=== PATIENT | male | born 1950 | race Caucasian/White ===

== ENCOUNTER → 2017-03-03 | Outpatient (CLI) | payer OTHER ==
--- NOTE | 2017-03-03 10:59 | Diagnostic Imaging Report ---
PROCEDURE:TESTICULAR ULTRASOUND COMPARISON:None. INDICATIONS:SPERMATOCELE TECHNIQUE: Lara-scale and color doppler images of the testicles and scrotal contents were obtained. Duplex imaging with spectral waveform analysis was performed of the testicular arteries and veins. FINDINGS: RIGHT SCROTUM: Testicle: 4.0 x 2.7 x 3.5 cm. Uniform parenchymal echotexture. No focal mass. Arterial and venous waveforms are identified by spectral waveform analysis. Epididymal head: 1.9 x 0.9 x 0.9 cm. Hydrocele: None Varicocele: None LEFT SCROTUM: Testicle: 4.4 x 2.9 x 3.37 m. Uniform parenchymal echotexture. No focal mass. Arterial and venous waveforms are identified by spectral waveform analysis. Epididymal head: 1.7 x 1 x 1.8 cm. 0.7 x 0.5 x 0.7 cm anechoic round structure compatible with a cyst or spermatocele. Hydrocele: None Varicocele: None CONCLUSION: 0.7 cm left epididymal head cyst versus spermatocele. Unremarkable sonographic appearance of the testes. Dictated by: Ankur Estrada M.D. on 03/03/2017 at 11:07 Electronically approved by: Ankur Estrada M.D. on 03/03/2017 at 11:07
--- NOTE | 2017-03-03 10:59 | Diagnostic Imaging Report ---
PROCEDURE:TESTICULAR DOPPLER ULTRASOUND COMPARISON:None. INDICATIONS:SPERMATOCELE TECHNIQUE: Lara-scale and color doppler images of the testicles and scrotal contents were obtained. Duplex imaging with spectral waveform analysis was performed of the testicular arteries and veins. FINDINGS: See conclusion CONCLUSION: Referred to "[facility] TESTICULAR" from 03/03/2017 for full dictated report. Dictated by: Ankur Estrada M.D. on 03/03/2017 at 11:08 Electronically approved by: Ankur Estrada M.D. on 03/03/2017 at 11:08
== END ==
LOC: US 09:28
PROVIDERS: ATTEND Urology
DX: N43.40 Spermatocele of epididymis, unspecified (principal)
CPT/HCPCS: 76870; 93976

== ENCOUNTER → 2018-07-05 | Outpatient (CLI) | payer MEDICARE ==
--- NOTE | 2018-07-05 12:25 | Diagnostic Imaging Report ---
EXAMINATION: Renal ultrasound. CLINICAL HISTORY :Incomplete bladder emptying COMPARISON: <None available.> TECHNIQUE: Grayscale and color Doppler evaluation of the kidneys and bladder was performed in transverse and longitudinal planes. DISCUSSION: RIGHT KIDNEY: 11.4 cm in length with normal renal cortical echogenicity. Mild hydronephrosis. No solid or cystic mass lesion. LEFT KIDNEY: The left kidney measures 10.6 cm in length and shows normal renal cortical echogenicity. Mild hydronephrosis. Exophytic simple cyst projecting from the upper pole measuring 2 x 1.5 x 1.8 cm. BLADDER: Distended. The prostate is enlarged measuring 4.6 x 3.4 x 4.1 cm, estimated volume 34 cc. Questionable nodule within the prostate with mass effect on the adjacent bladder measuring approximately 2 x 2.2 x 2.8 cm. Significant post void residual (700 cc). IMPRESSION: Mild prostatomegaly with significant post void residual volume of urine within the bladder (approximately 700 cc). Questionable associated exophytic prostatic nodule may be further evaluated by pelvic MRI. Mild bilateral hydronephrosis, presumably as a consequence of bladder outlet obstruction. Signed by: Dr. Ankur Estrada M.D. on 07/05/2018 12:21 PM
== END ==
LOC: US 10:23
PROVIDERS: ATTEND Urology
DX: R39.14 Feeling of incomplete bladder emptying (principal)
CPT/HCPCS: 76770; 76857

== ENCOUNTER 2021-10-06 15:00 | Inpatient (IN) | payer MEDICARE ==
[~2021-10-06] VITALS: Ht 175.3 cm; Wt 90.7 kg
[2021-10-06 15:57] LABS: CLARITY,URINE HAZY (CLEAR); COLOR,URINE AMBER (YELLOW); LEUKOCYTE ESTERASE ,URINE LARGE (NEGATIVE); NITRITE,URINE POSITIVE (NEGATIVE)
[2021-10-06 15:58] LABS: KETONES,URINE 1+ (NEGATIVE); PROTEIN,URINE DIPSTICK >=300 (NEGATIVE)
[2021-10-06 16:01] LABS: BACTERIA,URINE MANY /HPF; RBC,URINE >50 /HPF (0-5); WBC,URINE (MAN) >50 /HPF (0-5)
[2021-10-06 16:02] LABS: AMORPHOUS SEDIMENT,URINE FEW (FEW); EPITHELIAL CELLS,URINE FEW /LPF; MUCUS,URINE MODERATE (RARE)
[2021-10-06] MEDS ORDERED: MEROPENEM 1 GM in SODIUM CHLORIDE 0.9% 100 ML IV ONE (16:15)
[2021-10-06] MEDS ORDERED: SODIUM CHLORIDE 0.9% 1000ML 2,720 ML IV ONE (16:15)
[2021-10-06] MEDS ORDERED: Vancomycin IV 1 GM in SODIUM CHLORIDE 0.9% 250ML 250 ML IV ONE (16:30)
[2021-10-06 16:32] LABS: BASOPHILS % 0.2 % (0.0-1.0); EOSINOPHILS # (AUTO) 0.1 (0.0-0.4); EOSINOPHILS % 0.2 % (0.0-6.0); HEMATOCRIT 37.9 % (38.2-49.6); HEMOGLOBIN 12.4 g/dL (14.0-18.0); LYMPHOCYTES # (AUTO) 1.7 (1.0-3.2); LYMPHOCYTES % 8.3 % (18.0-39.1); MEAN CORPUSCULAR HGB CONC 32.7 g/dL (31-35); MEAN CORPUSCULAR VOLUME 94.8 fL (81-99); MONOCYTES # (AUTO) 2.8 (0.2-0.8); MONOCYTES % 13.5 % (4.4-11.3); NEUTROPHILS # (AUTO) 15.9 (2.1-6.9); NEUTROPHILS % 77.3 % (38.7-80.0); PLATELET COUNT 321 x10e3/uL (140-360)
[2021-10-06 16:42] LABS: INR 1.01; PROTHROMBIN TIME 14.2 seconds (11.9-14.5)
[2021-10-06 16:43] LABS: PARTIAL THROMBOPLASTIN TIME 29.7 seconds (23.8-35.5)
[2021-10-06 16:49] LABS: ALBUMIN 3.3 g/dL (3.5-5.0); ALBUMIN/GLOBULIN RATIO 0.8 (0.8-2.0); ANION GAP 15.3 mmol/L (8-16); CALCIUM 8.9 mg/dL (8.4-10.2); CREATININE, SERUM 0.75 mg/dL (0.72-1.25); POTASSIUM 4.3 mmol/L (3.5-5.1)
[2021-10-06 17:01] LABS: EOSINOPHILS % (MANUAL) 1 % (0-7); LYMPHOCYTES % (MANUAL) 15 % (19-48); MONOCYTES % (MANUAL) 18 % (3.4-9.0); NEUTROPHILS % (MANUAL) 66 % (40-74); PLATELET ESTIMATE ADEQUATE; PLATELET MORPHOLOGY COMMENT NORMAL; RBC MORPHOLOGY COMMENT NORMAL
[2021-10-06] MEDS ORDERED: ONDANSETRON HCL INJ 2MG/ML 2ML 2 MG/ML VIAL IV PRN (18:45)
[2021-10-06] MEDS ORDERED: BRILINTA90 MG (20:42)
[2021-10-06] MEDS ORDERED: DIOVAN160 MG PO (20:42)
[2021-10-06] MEDS ORDERED: RANEXA1000 MG PO (20:42)
[2021-10-06] MEDS ORDERED: METOPROLOL SUCC25 MG PO (20:42)
[2021-10-06] MEDS ORDERED: ASPIRIN81 MG PO (20:42)
[2021-10-06] MEDS ORDERED: SIMVASTATIN20 MG PO (20:42)
[2021-10-06 21:43] VITALS: BP 163/66
[2021-10-06] MEDS ORDERED: ACETAMINOPHEN 325 MG TAB PO PRN (22:00)
[2021-10-06] MEDS ORDERED: MAGNESIUM HYDROXIDE 30 ML UDC PO PRN (22:00)
[2021-10-06] MEDS ORDERED: MELATONIN 3 MG TAB PO PRN (22:00)
[2021-10-06] MEDS: SIMVASTATIN 20 MG TAB PO SCH (22:43)
[2021-10-06] MEDS: SODIUM CHLORIDE 0.9% 1000ML 1,000 ML IV SCH (22:43)
[2021-10-06] MEDS: METOPROLOL SUCCINATE 25 MG TAB XL PO SCH (22:44)
[2021-10-06] MEDS: RANOLAZINE 500 MG TABSR PO SCH (22:45)
[2021-10-06] MEDS: VALSARTAN 160 MG TAB PO SCH (22:45)
[2021-10-06] MEDS: ASPIRIN 81 MG CHEW TAB PO SCH (22:45)
[2021-10-06] MEDS: TICAGRELOR 90 MG TABLET PO SCH (22:46)
[2021-10-07] VITALS (10 sets, daily range): BP systolic 104–163; BP diastolic 52–66
[2021-10-07] MEDS: MEROPENEM 1 GM in SODIUM CHLORIDE 0.9% 100 ML IV SCH ×3 (00:29→16:32)
[2021-10-07] MEDS: SODIUM CHLORIDE 0.9% 1000ML 1,000 ML IV SCH ×3 (04:45→21:03)
[2021-10-07 05:47] LABS: BASOPHILS % 0.2 % (0.0-1.0); EOSINOPHILS # (AUTO) 0.1 (0.0-0.4); EOSINOPHILS % 0.5 % (0.0-6.0); HEMATOCRIT 35.6 % (38.2-49.6); HEMOGLOBIN 11.6 g/dL (14.0-18.0); LYMPHOCYTES # (AUTO) 2.2 (1.0-3.2); LYMPHOCYTES % 13.1 % (18.0-39.1); MEAN CORPUSCULAR HGB CONC 32.6 g/dL (31-35); MEAN CORPUSCULAR VOLUME 95.2 fL (81-99); MONOCYTES # (AUTO) 1.8 (0.2-0.8); MONOCYTES % 10.8 % (4.4-11.3); NEUTROPHILS # (AUTO) 12.6 (2.1-6.9); NEUTROPHILS % 74.7 % (38.7-80.0); PLATELET COUNT 292 x10e3/uL (140-360); RED BLOOD COUNT 3.74 x10e6/uL (4.3-5.7)
[2021-10-07] MEDS: HYDROCODONE/APAP 10MG-325MG TAB PO PRN ×2 (05:54→20:57)
[2021-10-07 05:59] LABS: ALBUMIN 2.9 g/dL (3.5-5.0); ALBUMIN/GLOBULIN RATIO 0.8 (0.8-2.0); CALCIUM 8.2 mg/dL (8.4-10.2); CREATININE, SERUM 0.69 mg/dL (0.72-1.25)
[2021-10-07] MEDS: RANOLAZINE 500 MG TABSR PO SCH ×2 (08:56→17:00)
[2021-10-07] MEDS: METOPROLOL SUCCINATE 25 MG TAB XL PO SCH ×2 (08:57→17:00)
[2021-10-07] MEDS: TICAGRELOR 90 MG TABLET PO SCH ×2 (08:57→17:35)
[2021-10-07] MEDS ORDERED: RANOLAZINE 500 MG TABSR PO SCH (09:00)
[2021-10-07] MEDS ORDERED: TICAGRELOR 90 MG TABLET PO SCH (09:00)
[2021-10-07] MEDS ORDERED: METOPROLOL SUCCINATE 25 MG TAB XL PO SCH (09:00)
[2021-10-07] MEDS ORDERED: ASPIRIN 81 MG CHEW TAB PO SCH ×2 (09:00)
[2021-10-07] MEDS ORDERED: VALSARTAN 160 MG TAB PO SCH (09:00)
[2021-10-07] MEDS: ASPIRIN 81 MG CHEW TAB PO SCH (20:50)
[2021-10-07] MEDS: VALSARTAN 160 MG TAB PO SCH (20:50)
[2021-10-07] MEDS: SIMVASTATIN 20 MG TAB PO SCH (20:50)
[2021-10-08] VITALS (8 sets, daily range): BP systolic 112–141; BP diastolic 55–69
[2021-10-08] MEDS: MEROPENEM 1 GM in SODIUM CHLORIDE 0.9% 100 ML IV SCH ×2 (00:24→08:16)
[2021-10-08 05:45] LABS: BASOPHILS # (AUTO) 0.1 (0.0-0.1); BASOPHILS % 0.4 % (0.0-1.0); EOSINOPHILS # (AUTO) 0.4 (0.0-0.4); EOSINOPHILS % 2.9 % (0.0-6.0); HEMATOCRIT 33.4 % (38.2-49.6); HEMOGLOBIN 11.1 g/dL (14.0-18.0); LYMPHOCYTES # (AUTO) 2.1 (1.0-3.2); MEAN CORPUSCULAR HEMOGLOBIN 30.9 pg (28-32); MEAN CORPUSCULAR HGB CONC 33.2 g/dL (31-35); MONOCYTES # (AUTO) 1.2 (0.2-0.8); MONOCYTES % 10.1 % (4.4-11.3); NEUTROPHILS # (AUTO) 8.3 (2.1-6.9); NEUTROPHILS % 69.1 % (38.7-80.0); PLATELET COUNT 272 x10e3/uL (140-360); RED BLOOD COUNT 3.59 x10e6/uL (4.3-5.7); RED CELL DISTRIBUTION WIDTH 13.1 % (11.7-14.4)
[2021-10-08 06:06] LABS: ANION GAP 12.9 mmol/L (8-16); CREATININE, SERUM 0.67 mg/dL (0.72-1.25); POTASSIUM 3.9 mmol/L (3.5-5.1)
[2021-10-08] MEDS: METOPROLOL SUCCINATE 25 MG TAB XL PO SCH ×3 (08:15→17:34)
[2021-10-08] MEDS: RANOLAZINE 500 MG TABSR PO SCH ×3 (08:15→17:35)
[2021-10-08] MEDS: TICAGRELOR 90 MG TABLET PO SCH ×2 (08:16→17:35)
[2021-10-08] MEDS: SODIUM CHLORIDE 0.9% 1000ML 1,000 ML IV SCH ×2 (08:16→21:54)
[2021-10-08] MEDS ORDERED: ONDANSETRON HCL 4 MG ORAL DISINTEGRATING TAB PO PRN (11:45)
[2021-10-08] MEDS: HYDROCODONE/APAP 10MG-325MG TAB PO PRN (12:06)
[2021-10-08] MEDS: ASPIRIN 81 MG CHEW TAB PO SCH (21:46)
[2021-10-08] MEDS: SIMVASTATIN 20 MG TAB PO SCH (21:46)
[2021-10-08] MEDS: VALSARTAN 160 MG TAB PO SCH (21:46)
[2021-10-09] VITALS: BP 144/59
[2021-10-09 04:00] VITALS: BP 124/51
[2021-10-09 05:35] LABS: BASOPHILS % 0.2 % (0.0-1.0); EOSINOPHILS # (AUTO) 0.4 (0.0-0.4); EOSINOPHILS % 2.6 % (0.0-6.0); HEMATOCRIT 38.6 % (38.2-49.6); HEMOGLOBIN 12.3 g/dL (14.0-18.0); LYMPHOCYTES # (AUTO) 2.5 (1.0-3.2); LYMPHOCYTES % 18.8 % (18.0-39.1); MEAN CORPUSCULAR HEMOGLOBIN 30.6 pg (28-32); MEAN CORPUSCULAR HGB CONC 31.9 g/dL (31-35); MONOCYTES # (AUTO) 1.2 (0.2-0.8); MONOCYTES % 9.1 % (4.4-11.3); NEUTROPHILS # (AUTO) 9.2 (2.1-6.9); NEUTROPHILS % 68.9 % (38.7-80.0); PLATELET COUNT 341 x10e3/uL (140-360); RED BLOOD COUNT 4.02 x10e6/uL (4.3-5.7); RED CELL DISTRIBUTION WIDTH 12.9 % (11.7-14.4)
[2021-10-09] MEDS: HYDROCODONE/APAP 10MG-325MG TAB PO PRN (05:52)
[2021-10-09 05:55] LABS: ANION GAP 16.9 mmol/L (8-16); CALCIUM 8.7 mg/dL (8.4-10.2); CREATININE, SERUM 0.7 mg/dL (0.72-1.25); POTASSIUM 3.9 mmol/L (3.5-5.1)
[2021-10-09] MEDS: SODIUM CHLORIDE 0.9% 1000ML 1,000 ML IV SCH ×2 (06:45→11:03)
[2021-10-09 07:51] VITALS: BP 134/68
[2021-10-09] MEDS: RANOLAZINE 500 MG TABSR PO SCH (08:50)
[2021-10-09] MEDS: TICAGRELOR 90 MG TABLET PO SCH (08:50)
[2021-10-09] MEDS: METOPROLOL SUCCINATE 25 MG TAB XL PO SCH (08:51)
[2021-10-09 12:25] VITALS: BP 132/61
[2021-10-09] MEDS ORDERED: CEFUROXIME250 MG PO (14:37)
== END 2021-10-09 15:46 | disposition home or self-care (01) | DRG 872 ==
LOC: ER 15:46 → INTOOBSV 18:42 → ERHOLD 18:42 → MED/SURG2 19:55 → OBSVTOIN 10-08 11:25
PROVIDERS: ADMIT Internal Medicine; ATTEND Internal Medicine
DX: A41.51 Sepsis due to Escherichia coli [E. coli] (principal); N39.0 Urinary tract infection, site not specified; I25.10 Atherosclerotic heart disease of native coronary artery without angina pectoris; E78.5 Hyperlipidemia, unspecified; N43.40 Spermatocele of epididymis, unspecified; N40.0 Benign prostatic hyperplasia without lower urinary tract symptoms; I25.2 Old myocardial infarction; Z95.1 Presence of aortocoronary bypass graft; Z95.5 Presence of coronary angioplasty implant and graft; N28.1 Cyst of kidney, acquired; Z20.822 Contact with and (suspected) exposure to COVID-19
CPT/HCPCS: 0223U; 36415; 76770; 80048; 80053; 81001; 83605; 85025; 85610; 85730; 87040; 87086; 87186; 96361; 99251; 99284; G0378; J0696; J2185; J3370; J7030; J7050